=== PATIENT | male | born 1955 | race Caucasian/White ===

== ENCOUNTER 2023-05-08 08:21 | Outpatient (CLI) | payer MEDICARE ==
[2023-05-08 15:08] LABS: BASOPHILS # (AUTO) 0.1 10^3/uL (0.0-0.1); BASOPHILS % (AUTO) 1.2 %; EOSINOPHILS # (AUTO) 0.2 10^3/uL (0.0-0.7); HCT - HEMATOCRIT 46.1 % (42.0-52.0); HGB - HEMOGLOBIN 14.4 g/dL (14.0-18.0); LYMPHOCYTES # (AUTO) 1.3 10^3/uL (1.5-3.5); LYMPHOCYTES % (AUTO) 29.6 %; MEAN CORPUSCULAR HEMOGLOBIN 29.8 pg (27.0-31.0); MEAN CORPUSCULAR HGB CONC 31.2 g/dL (32.0-36.0); MEAN CORPUSCULAR VOLUME 95.2 fL (80.0-94.0); MEAN PLATELET VOLUME 9.6 fL (7.4-11.4); MONOCYTES # (AUTO) 0.5 10^3/uL (0.0-1.0); MONOCYTES % (AUTO) 12.3 %; NEUTROPHILS # (AUTO) 2.2 10^3/uL (1.5-6.6); NEUTROPHILS % (AUTO) 52.7 %; PLT - PLATELET COUNT 253 10^3/uL (130-450); RED BLOOD COUNT 4.84 10^6/uL (4.70-6.10); RED CELL DISTRIBUTION WIDTH 13.6 % (12.0-15.0); WHITE BLOOD COUNT 4.2 x10^3/uL (4.8-10.8)
[2023-05-08 15:32] LABS: ALBUMIN/GLOBULIN RATIO 1.5 (1.0-2.2); ALKALINE PHOSPHATASE 81 IU/L (42-121); ALT ALANINE AMINOTRANSFERASE 17 IU/L (10-60); AST ASPARTATE AMINOTRANSFERASE 19 IU/L (10-42); BILIRUBIN,TOTAL 0.4 mg/dL (0.2-1.0); BUN - BLOOD UREA NITROGEN 23 mg/dL (6-20); CALCIUM 9.3 mg/dL (8.5-10.3); CARBON DIOXIDE - CO2 27 mmol/L (21-32); CHLORIDE 106 mmol/L (101-111); CHOL/HDL RATIO 3.4 (<5.0); CHOLESTEROL 255 mg/dL; GFR - MDRD 75 (>89); GLUCOSE 77 mg/dL (74-104); HDL CHOLESTEROL 74 mg/dL; LDL CHOLESTEROL,CALCULATED 168 mg/dL; LDL/HDL RATIO 2.3 (<3.6); POTASSIUM 4.4 mmol/L (3.5-4.5); SODIUM 139 mmol/L (135-145); TOTAL PROTEIN 6.7 g/dL (6.4-8.9); TRIGLYCERIDES 64 mg/dL (48-352); VLDL CHOLESTEROL 13 mg/dL
[2023-05-08 15:41] LABS: THYROID STIMULATING HORMONE 2.11 uIU/mL (0.34-5.60)
[2023-05-08 20:19] LABS: ESTIMATED AVERAGE GLUCOSE 114 mg/dL (70-100); HEMOGLOBIN A1c% 5.6 % (4.27-6.07)
== END 2023-05-08 08:22 | disposition home or self-care (01) ==
LOC: LAB.S 08:21
PROVIDERS: ATTEND Physician Assistant Medical
DX: Z13.9 Encounter for screening, unspecified (principal)
CPT/HCPCS: 36415; 80053; 80061; 83036; 83721; 84153; 84443; 85025

== ENCOUNTER 2023-06-23 12:15 | Outpatient (CLI) | payer MEDICARE ==
[2023-06-23] MEDS ORDERED: iohexoL-300 100 ML VIAL ONE (12:29)
--- NOTE | 2023-06-23 21:21 | CT Report ---
PROCEDURE: CT heart coronary calcium scoring without contrast TECHNIQUE: MDCT non-contrast cardiac gated images were obtained from the celio through the inferior margin of the heart. Calcium score was obtained by post-processing with external software. Automated exposure control was used to reduce patient radiation dose. INDICATION: CAD screening, low or intermediate risk COMPARISON: None FINDINGS: Image quality: Excellent Agatston method: Total calcium score: 11.5 L main: 0 LAD: 11.5 LCX: 0 RCA: 0 Heart findings: Mitral annular calcifications: No significant calcifications. Aortic valve: No significant valvular calcifications. Chambers: No significant enlargement on this non-dynamic study. Pericardium: No effusion. Other findings (note the chest is incompletely imaged on this limited non-contrast study): Lungs and pleura: No pleural effusion. No actionable lung nodules. Mediastinum: No pathologic lymphadenopathy. Upper abdomen: Partially seen, unremarkable. Bones: No acute or suspicious abnormality. IMPRESSION: Coronary calcium scores as above. Incidentals: None significant. Coronary artery calcium scores have been identified as an independent risk factor for future acute co ronary syndromes and correlate with the quantity of coronary atherosclerotic plaque. However, they do not correlate directly with the degree of stenosis. A low score does not exclude a significant coron mallika artery stenosis. Risk of future coronary events should be assessed with individual patient risk factors and medical hi story. Consider correlation with risk percentiles using the PORTILLO (Multi-Ethnic Study of Atheroscleros is) calculator. CAC-DRS Categories: A0: 0, very low risk, consider repeat coronary calcium study every 3-7 years for surveillance. A1: 1-99, mildly increased risk, consider moderate-intensity statin A2: 100-299: moderately increased risk, consider moderate to high-intensity statin + ASA 81mg A3: >300: moderately to severely increased risk, consider high-intensity statin + ASA 81mg Reviewed by: Solomon Hubbard MD on 06/23/2023 9:19 PM PDT Approved by: Solomon Hubbard MD on 06/23/2023 9:19 PM PDT Station ID: [id number]
== END 2023-06-23 12:16 | disposition home or self-care (01) ==
LOC: DI 12:15
PROVIDERS: ATTEND Physician Assistant Medical
DX: I25.10 Atherosclerotic heart disease of native coronary artery without angina pectoris (principal)